=== PATIENT | female | born 1930 | race Caucasian/White ===

== ENCOUNTER 2017-10-11 16:46 | Emergency (ER) | payer MEDICARE, MEDICAID ==
[~2017-10-11] VITALS: Ht 157.5 cm; Wt 59.0 kg
--- NOTE | 2017-10-11 16:41 | Emergency Room Report ---
History of Present Illness General Chief Complaint: Skin Rash/Abscess Present Illness HPI Patient is a 86-year-old female with history dementia sent in by primary care physician from [facility] after increased of axillary swelling possible abscess. The patient prior history dementia. She had no previous history of abscess. Patient markedly limited by patient's mental status Allergies: Coded Allergies: NO KNOWN DRUG ALLERGIES (Unverified Allergy, Unknown, 12/19/15) STRAWBERRY (Verified Allergy, Unknown, 08/12/15) Uncoded Allergies: STRAWBERRY (Allergy, Unknown, 12/19/15) Patient History Past Medical History: see triage record Reviewed Nursing Documentation: PMH: Agreed, PSxH: Agreed Review of Systems All Other Systems: negative except mentioned in HPI Physical Exam Vital Signs Date Time Temp Pulse Resp B/P (MAP) Pulse Ox O2 Delivery O2 Flow Rate FiO2 10/11/17 16:38 67 20 122/56 95 Room Air Sp02 EP Interpretation: reviewed, normal General Appearance: normal inspection, well appearing, no apparent distress, alert, Chronically Ill Head: atraumatic ENT: normal ENT inspection, hearing grossly normal, normal voice Neck: normal inspection, full range of motion, supple, no bony tend Respiratory: normal inspection, lungs clear, normal breath sounds, no respiratory distress, no retraction, no wheezing Cardiovascular #1: regular rate, rhythm, no edema Gastrointestinal: normal inspection, normal bowel sounds, non tender, soft, no guarding, no hernia Genitourinary: no CVA tenderness Musculoskeletal: normal inspection, back normal, normal range of motion Neurologic: normal inspection, alert, responsive, speech normal Psychiatric: normal inspection, judgement/insight normal, mood/affect normal Skin: normal inspection, normal color, no rash Procedures Incision and Drainage Incision and Drainage : Consent: Written Site: left axilla Blade Size: 11 I & D Procedure: betadine prep, sterile drapes applied, sterile dressing applied Wound Location: axilla Wound Length (cm): 1 Irrigated w/ Saline (ccs): 30 Anesthesia: Lidocaine w/ Epi Volume Anesthetic (ccs): 5 Patient Tolerated: Well Complications: None Medical Decision Making Diagnostic Impression: Primary Impression: Abscess of axilla, left ER Course Patient presented for abscess. Differential diagnosis included was not limited to abscess, cellulitis, folliculitis, necrotizing fasciitis. Abscess was drained with slight amount of purulent material. I laboratory testing was unremarkable. The patient is advised to follow up with primary care doctor in 1-2 days. Patient is advised to return if any worsening condition or if any changes in status that are concerning. Labs Test 10/11/17 17:20 White Blood Count 8.3 K/UL (4.8-10.8) Red Blood Count 3.82 M/UL (4.20-5.40) Hemoglobin 11.9 G/DL (12.0-16.0) Hematocrit 38.3 % (37.0-47.0) Mean Corpuscular Volume 100 FL (80-99) Mean Corpuscular Hemoglobin 31.3 PG (27.0-31.0) Mean Corpuscular Hemoglobin Concent 31.2 G/DL (32.0-36.0) Red Cell Distribution Width 12.5 % (11.6-14.8) Platelet Count 221 K/UL (150-450) Mean Platelet Volume 7.7 FL (6.5-10.1) Neutrophils (%) (Auto) 68.2 % (45.0-75.0) Lymphocytes (%) (Auto) 19.2 % (20.0-45.0) Monocytes (%) (Auto) 9.7 % (1.0-10.0) Eosinophils (%) (Auto) 1.7 % (0.0-3.0) Basophils (%) (Auto) 1.2 % (0.0-2.0) Sodium Level 143 MMOL/L (136-145) Potassium Level 3.8 MMOL/L (3.5-5.1) Chloride Level 107 MMOL/L (98-107) Carbon Dioxide Level 25 MMOL/L (21-32) Anion Gap 11 mmol/L (5-15) Blood Urea Nitrogen 23 mg/dL (7-18) Creatinine 1.2 MG/DL (0.55-1.30) Estimat Glomerular Filtration Rate mL/min (>60) Glucose Level 85 MG/DL (74-106) Lactic Acid Level 1.40 mmol/L (0.66-2.22) Calcium Level 8.9 MG/DL (8.5-10.1) Total Bilirubin 0.3 MG/DL (0.2-1.0) Aspartate Amino Transf (AST/SGOT) 15 U/L (15-37) Alanine Aminotransferase (ALT/SGPT) 15 U/L (12-78) Alkaline Phosphatase 66 U/L (46-116) Total Creatine Kinase 85 U/L (26-308) Creatine Kinase MB 2.9 NG/ML (0.0-3.6) Creatine Kinase MB Relative Index 3.4 Troponin I 0.002 ng/mL (0.000-0.056) Total Protein 7.9 G/DL (6.4-8.2) Albumin 3.6 G/DL (3.4-5.0) Globulin 4.3 g/dL Albumin/Globulin Ratio 0.8 (1.0-2.7) Last Vital Signs Date Time Temp Pulse Resp B/P (MAP) Pulse Ox O2 Delivery O2 Flow Rate FiO2 10/11/17 16:38 67 20 122/56 95 Room Air Status: improved Disposition: HOME, SELF-CARE Condition: Stable Scripts Cephalexin* (KEFLEX*) 500 Mg Capsule 500 MG ORAL Q6H, #28 CAP 0 Refills Prov: Rj Ibrahim 10/11/17 Rj Ibrahim Oct 11, 2017 16:41
[~2017-10-11 16:46] MED LIST: ASPIRIN81 MG ORAL; ATIVAN1 MG ORAL; ATORVASTATIN CA10 MG ORAL; ATORVASTATIN CA20 MG ORAL; BACTROBAN 2% OI15 GM TOPIC; BISACODYL5 MG RECTAL; COLACE100 MG ORAL; CRANBERRY450 M4 PO; FISH OIL 500 M1 EAC1 PO; FLEET ENEMA133 ML RECTAL; FOLIC ACID1 MG ORAL; IMODIUM2 MG ORAL; LEVOTHYROXINE100 MCG ORAL; LEVOTHYROXINE125 MCG ORAL; METOPROLOL TART25 MG ORAL; MILK OF MA400 MG/51 ORAL; MULTIVITAMINS1 EA13 ORAL; NUEDEXTA 20-101 EAC1 PO; OYSTER SHELL 51 EAC1 PO; SPIRONOLACTONE25 MG ORAL; TYLENOL325 MG ORAL
[2017-10-11 17:00] VITALS: BP 162/68
[2017-10-11] MEDS ORDERED: Lidocaine 1% 10mg/ml/EPI 0.01mg/ml 50ml INJ ONE (17:31)
[2017-10-11 17:51] LABS: ANION GAP 11 mmol/L (5-15); CALCIUM 8.9 MG/DL (8.5-10.1); CARBON DIOXIDE 25 MMOL/L (21-32); CHLORIDE 107 MMOL/L (98-107); CREATININE 1.2 MG/DL (0.55-1.30); POTASSIUM 3.8 MMOL/L (3.5-5.1); SODIUM 143 MMOL/L (136-145)
[2017-10-11 17:55] LABS: BASOPHILS % (AUTO) 1.2 % (0.0-2.0); EOSINOPHILS % (AUTO) 1.7 % (0.0-3.0); LYMPHOCYTES % (AUTO) 19.2 % (20.0-45.0); MEAN CORPUSCULAR HEMOGLOBIN 31.3 PG (27.0-31.0); MEAN CORPUSCULAR HGB CONC 31.2 G/DL (32.0-36.0); MEAN CORPUSCULAR VOLUME 100 FL (80-99); MEAN PLATELET VOLUME 7.7 FL (6.5-10.1); MONOCYTES % (AUTO) 9.7 % (1.0-10.0); NEUTROPHILS % (AUTO) 68.2 % (45.0-75.0); PLATELET COUNT 221 K/UL (150-450); RED BLOOD COUNT 3.82 M/UL (4.20-5.40); RED CELL DISTRIBUTION WIDTH 12.5 % (11.6-14.8); WHITE BLOOD COUNT 8.3 K/UL (4.8-10.8)
[2017-10-11] MEDS ORDERED: Bacitracin Oint UD TOPIC ONE (18:00)
[2017-10-11] MEDS ORDERED: LORAZEPAM0.5 MG ORAL (18:02)
[2017-10-11 18:05] LABS: ALANINE AMINOTRANSFERASE 15 U/L (12-78); ALBUMIN/GLOBULIN RATIO 0.8 (1.0-2.7); ASPARTATE AMINO TRANSFERASE 15 U/L (15-37); CKMB 2.9 NG/ML (0.0-3.6); TOTAL PROTEIN 7.9 G/DL (6.4-8.2)
[2017-10-11] MEDS ORDERED: LEVOTHYROXINE125 MCG ORAL (18:05)
[2017-10-11] MEDS ORDERED: METOPROLOL TART25 MG ORAL (18:05)
[2017-10-11] MEDS ORDERED: ACETAMINOPHEN325 M1 ORAL (18:07)
[2017-10-11] MEDS ORDERED: SERTRALINE HCL50 MG ORAL (18:08)
[2017-10-11] MEDS ORDERED: Lidocaine 1% 10mg/ml/Epi 0.005mg/ml 30ml vial INJ ONE (18:15)
[2017-10-11] MEDS ORDERED: KEFLEX500 MG ORAL (18:17)
[2017-10-11] MEDS ORDERED: BACTRIM-DS1 EA ORAL (18:17)
[2017-10-11 18:30] VITALS: BP 162/62
--- NOTE | 2017-10-12 10:36 | Diagnostic Imaging Report ---
Indication: Shortness of breath Technique: XRAY CHEST 1 V Comparison: 12/19/15 Findings: Cardiac silhouette is prominent. There is central pulmonary vascular congestion and mild interstitial probable edema. Bilateral lung base atelectasis is noted. Degenerative changes of the spine are seen. Atherosclerotic changes are present. Impression: Cardiomegaly with central pulmonary vascular congestion and mild interstitial probable edema. Bibasilar atelectasis. Clinical correlation/followup recommended.
--- NOTE | 2017-10-13 15:34 | Cardiology Report ---
APPROVED REPORT EKG Measurement Heart [id number] Normal sinus rhythm Left axis deviation Left bundle branch block Abnormal ECG
== END 2017-10-11 18:30 | disposition home or self-care (01) ==
LOC: EDBD 16:46 → EMR 17:00
DX: L02.412 Cutaneous abscess of left axilla (principal)
CPT/HCPCS: 10060; 36415; 71010; 80053; 82550; 82553; 83605; 84484; 85025; 87040; 93005; 99282

== ENCOUNTER 2019-10-02 13:34 | Inpatient (IN) | payer MEDICARE, MEDICAID ==
[~2019-10-02] VITALS: Ht 170.2 cm; Wt 60.3 kg
[~2019-10-02 13:34] MED LIST changes: +ACETAMINOPHEN325 M1 ORAL; +BACTRIM-DS1 EA ORAL; +KEFLEX500 MG ORAL; +LORAZEPAM0.5 MG ORAL; +SERTRALINE HCL50 MG ORAL
[2019-10-02] MEDS ORDERED: cefTRIAXone 1 GM in NS 55 ML IVPB ONE (14:00)
--- NOTE | 2019-10-02 14:08 | Emergency Room Report ---
History of Present Illness General Chief Complaint: Abnormal Labs Source: Medical Record, EMS Present Illness HPI Disclaimer: Please note that this report is being documented using DRAGON technology. This can lead to erroneous entry secondary to incorrect interpretation by the dictating instrument. HPI: 88-year-old female presents for evaluation of failure to thrive and urinary tract infection from her nursing facility. Urinalysis performed on as an outpatient shows 3+ leukocyte esterase and turbid appearance consistent with acute urinary tract infection. Patient was reportedly less active than usual though her baseline mental status is AO x1. Transfer document patient also reports poor feeding over the past few days. Was sent in for medical evaluation and admission by her PMD. Patient cannot provide any history. She arrives with stable vital signs. PMH: Alzheimer's dementia, hypertension, hyperlipidemia, hypothyroidism, anemia PSH: Could not obtain from patient Allergies: No known medication drug allergies Social Hx: Could not obtain from patient Allergies: Coded Allergies: NO KNOWN DRUG ALLERGIES (Unverified Allergy, Unknown, 12/19/15) STRAWBERRY (Verified Allergy, Unknown, 08/12/15) Uncoded Allergies: STRAWBERRY (Allergy, Unknown, 12/19/15) Nursing Documentation-PMH Past Medical History: No History, Except For Hx Cardiac Problems: Yes - BRADYCARDIA Hx Hypertension: Yes Hx Diabetes: No - hypothyroidism Hx Cancer: Yes Hx Gastrointestinal Problems: Yes - PT HAS HISTORY OF ABDOMINAL PROBLEMS BUT UNKNOWN History Of Psychiatric Problem: Yes - HELLEN, MAJOR DEPRESSIVE DISORDER Hx Neurological Problems: Yes Hx Dementia: Yes Hx Alzheimer's Disease: Yes Hx Memory Loss: Yes Review of Systems All Other Systems: limited Physical Exam Vital Signs Date Time Temp Pulse Resp B/P (MAP) Pulse Ox O2 Delivery O2 Flow Rate FiO2 10/02/19 13:35 97.3 59 18 97/58 (71) 93 Room Air General: Awake and alert, no acute distress sleeping on my evaluation HEENT: NC/AT. EOMI. dry mucous membranes Cardiovascular: Bradycardia with a rate in the mid 50s. S1 and S2 normal. No murmur appreciated Resp: Normal work of breathing. No cough, wheezing or crackles appreciated Abdomen: Abdomen is soft, nondistended. Mild tenderness and apparent pain reaction to deep palpation of the suprapubic region MSK: Normal tone and bulk. Moving all extremities. No obvious deformity. Neuro: Sleeping, awakens to verbal stimulus. Cannot provide any significant history. Makes purposeful movements towards pain. GCS 10 Medical Decision Making Diagnostic Impression: Primary Impression: UTI (urinary tract infection) Additional Impression: AMS (altered mental status) ER Course 88-year-old female sent from nursing facility by her PMD for evaluation and admission of UTI, decreased mental status and poor feeding over the past few days. We will repeat labs including urinalysis though we will treat patient with ceftriaxone and provide a small dose of IV fluids. Her vital signs are stable and within normal limits aside from bradycardia seen on monitor. She is afebrile, normal respiratory rate, normal oxygenation. Laboratory Tests Test 10/02/19 14:00 White Blood Count 11.1 K/UL (4.8-10.8) H Red Blood Count 4.07 M/UL (4.20-5.40) L Hemoglobin 13.0 G/DL (12.0-16.0) Hematocrit 38.8 % (37.0-47.0) Mean Corpuscular Volume 95 FL (80-99) Mean Corpuscular Hemoglobin 31.9 PG (27.0-31.0) H Mean Corpuscular Hemoglobin Concent 33.5 G/DL (32.0-36.0) Red Cell Distribution Width 11.1 % (11.6-14.8) L Platelet Count 324 K/UL (150-450) Mean Platelet Volume 7.2 FL (6.5-10.1) Neutrophils (%) (Auto) 69.2 % (45.0-75.0) Lymphocytes (%) (Auto) 20.7 % (20.0-45.0) Monocytes (%) (Auto) 7.8 % (1.0-10.0) Eosinophils (%) (Auto) 1.4 % (0.0-3.0) Basophils (%) (Auto) 0.8 % (0.0-2.0) Urine Color Pale yellow Urine Appearance Slightly cloudy Urine pH 8 (4.5-8.0) Urine Specific Star 1.010 (1.005-1.035) Urine Protein 3+ (NEGATIVE) H Urine Glucose (UA) Negative (NEGATIVE) Urine Ketones Negative (NEGATIVE) Urine Blood 3+ (NEGATIVE) H Urine Nitrite Negative (NEGATIVE) Urine Bilirubin Negative (NEGATIVE) Urine Urobilinogen Normal MG/DL (0.0-1.0) Urine Leukocyte Esterase 3+ (NEGATIVE) H Urine RBC Pending Urine WBC Pending Urine Squamous Epithelial Cells Pending Urine Bacteria Pending Sodium Level 140 MMOL/L (136-145) Potassium Level 3.6 MMOL/L (3.5-5.1) Chloride Level 104 MMOL/L (98-107) Carbon Dioxide Level 23 MMOL/L (21-32) Anion Gap 13 mmol/L (5-15) Blood Urea Nitrogen 40 mg/dL (7-18) H Creatinine 1.3 MG/DL (0.55-1.30) Estimate Glomerular Filtration Rate mL/min (>60) Glucose Level 140 MG/DL (74-106) H Calcium Level 8.4 MG/DL (8.5-10.1) L Total Bilirubin 0.2 MG/DL (0.2-1.0) Aspartate Amino Transferase (AST) 9 U/L (15-37) L Alanine Aminotransferase (ALT) 15 U/L (12-78) Alkaline Phosphatase 70 U/L (46-116) Total Protein 7.5 G/DL (6.4-8.2) Albumin 3.0 G/DL (3.4-5.0) L Globulin 4.5 g/dL Albumin/Globulin Ratio 0.7 (1.0-2.7) L Reevaluation Time: 14:58 Last Vital Signs Date Time Temp Pulse Resp B/P (MAP) Pulse Ox O2 Delivery O2 Flow Rate FiO2 10/02/19 13:35 97.3 59 18 97/58 (71) 93 Room Air Reevaluation Impression Urinalysis is consistent with urinary tract infection. I spoke with her primary care doctor who confirms that the patient had a positive blood culture for E. coli but cannot recall sensitivities. She will be admitted and infectious disease will evaluate the patient and further continue appropriate antibiotics. Ceftriaxone was given here in the emergency department. Labs are otherwise within normal limits aside from elevated BUN consistent with poor oral intake over the past few days. Kidney function and white count are within normal limits. She is stable for admission to the medical floor for symptomatic urinary tract infection. Disposition: ADMITTED INPATIENT Condition: Serious Youusf Naranjo MD Oct 02, 2019 14:08
[2019-10-02 14:21] VITALS: BP 116/52
[2019-10-02] MEDS ORDERED: LEVOTHYROXINE175 MCG ORAL (14:24)
[2019-10-02 14:43] LABS: APPEARANCE,URINE SLIGHTLY CLOUDY; BILIRUBIN, URINE NEGATIVE (NEGATIVE); COLOR,URINE PALE YELLOW; GLUCOSE, URINE (UA) NEGATIVE (NEGATIVE); KETONES,URINE NEGATIVE (NEGATIVE); LEUKOCYTE ESTERASE ,URINE 3+ (NEGATIVE); NITRITE,URINE NEGATIVE (NEGATIVE); PH,URINE 8 (4.5-8.0); PROTEIN,URINE 3+ (NEGATIVE); UROBILINOGEN,URINE NORMAL MG/DL (0.0-1.0)
[2019-10-02 14:44] LABS: ANION GAP 13 mmol/L (5-15); BLOOD UREA NITROGEN 40 mg/dL (7-18); CALCIUM 8.4 MG/DL (8.5-10.1); CARBON DIOXIDE 23 MMOL/L (21-32); CHLORIDE 104 MMOL/L (98-107); CREATININE 1.3 MG/DL (0.55-1.30); POTASSIUM 3.6 MMOL/L (3.5-5.1); SODIUM 140 MMOL/L (136-145)
[2019-10-02 14:46] LABS: BASOPHILS % (AUTO) 0.8 % (0.0-2.0); EOSINOPHILS % (AUTO) 1.4 % (0.0-3.0); HEMATOCRIT 38.8 % (37.0-47.0); LYMPHOCYTES % (AUTO) 20.7 % (20.0-45.0); MEAN CORPUSCULAR VOLUME 95 FL (80-99); MONOCYTES % (AUTO) 7.8 % (1.0-10.0); NEUTROPHILS % (AUTO) 69.2 % (45.0-75.0); PLATELET COUNT 324 K/UL (150-450); RED BLOOD COUNT 4.07 M/UL (4.20-5.40); RED CELL DISTRIBUTION WIDTH 11.1 % (11.6-14.8); WHITE BLOOD COUNT 11.1 K/UL (4.8-10.8)
[2019-10-02 14:49] LABS: ALANINE AMINOTRANSFERASE 15 U/L (12-78); ALBUMIN/GLOBULIN RATIO 0.7 (1.0-2.7); ALKALINE PHOSPHATASE 70 U/L (46-116); ASPARTATE AMINO TRANSFERASE 9 U/L (15-37); BILIRUBIN,TOTAL 0.2 MG/DL (0.2-1.0)
[2019-10-02 15:25] VITALS: BP 126/52
[2019-10-02 16:30] VITALS: BP 122/81
[2019-10-02 20:00] VITALS: BP 155/63
[2019-10-02 21:25] VITALS: BP 124/66
[2019-10-02] MEDS: Heparin 5000 units/ml inj SUBQ SCH (21:40)
--- NOTE | 2019-10-02 23:31 | History and Physical Report ---
DATE OF ADMISSION: 10/02/2019 HISTORY OF PRESENT ILLNESS: The patient is a poor historian, cannot get a reliable history from the patient. The patient admitted for symptomatic urinary tract infection. According to the facility nurses, the patient has been more lethargic, less responsive, and poor appetite. Culture was ordered and it was positive. The patient denies nausea, vomiting, diarrhea, however, is a poor historian, cannot rely upon her history. PAST MEDICAL HISTORY: Organic brain syndrome, hyperlipidemia, constipation, hypothyroidism, hypertension, depression. ALLERGIES: Strawberries. MEDICATIONS: Bisacodyl, Lipitor, aspirin, metoprolol, sertraline, spironolactone. FAMILY HISTORY: Unable to obtain. SOCIAL HISTORY: Unable to obtain. REVIEW OF SYSTEMS: Very poor historian however. HEENT: Denies headaches. RESPIRATORY: Denies shortness of breath. Denies cough. CARDIOVASCULAR: Denies chest pain. Denies nausea, vomiting, or diarrhea. Again is a poor historian. PHYSICAL EXAMINATION: VITAL SIGNS: Temperature 97.3, pulse 59, blood pressure 116/50. HEENT: PERRLA. NECK: Supple. No lymphadenopathy. CHEST: Clear to auscultation. CARDIOVASCULAR: Regular rate and rhythm. No murmurs or extra sounds. GASTROINTESTINAL: Soft. Positive bowel sounds. No organomegaly. EXTREMITIES: No edema. Contractures. Reflexes in both sides. . LABORATORY DATA: WBC of 11.9, hemoglobin 13, and platelets of 324. Sodium 140, potassium 3.6, BUN of 14, creatinine 1.3, and glucose of . ASSESSMENT AND PLAN: 1. Rule out dehydration. 2. Failure to thrive. 3. More lethargic than baseline . 4. Symptomatic urinary tract infection. I have asked Dr. Cleveland, Dr. Alok Sanchez to see the patient for the management of the above-mentioned diagnoses and treatment. Yessica Davenport M.D. DR: Briana JOB#: [id number] CC:
[2019-10-03] VITALS (8 sets, daily range): BP systolic 111–142; BP diastolic 63–99
[2019-10-03] MEDS: Levothyroxine 125mcg tab ORAL SCH (06:16)
[2019-10-03 08:05] LABS: BASOPHILS % (AUTO) 0.6 % (0.0-2.0); EOSINOPHILS % (AUTO) 1.3 % (0.0-3.0); HEMATOCRIT 35.8 % (37.0-47.0); HEMOGLOBIN 12.1 G/DL (12.0-16.0); LYMPHOCYTES % (AUTO) 21.9 % (20.0-45.0); MEAN CORPUSCULAR VOLUME 94 FL (80-99); MONOCYTES % (AUTO) 6.3 % (1.0-10.0); NEUTROPHILS % (AUTO) 69.9 % (45.0-75.0); PLATELET COUNT 284 K/UL (150-450); RED BLOOD COUNT 3.79 M/UL (4.20-5.40); WHITE BLOOD COUNT 10.9 K/UL (4.8-10.8)
[2019-10-03 08:12] LABS: ALANINE AMINOTRANSFERASE 14 U/L (12-78); ALBUMIN 2.8 G/DL (3.4-5.0); ALBUMIN/GLOBULIN RATIO 0.7 (1.0-2.7); ALKALINE PHOSPHATASE 61 U/L (46-116); ANION GAP 11 mmol/L (5-15); ASPARTATE AMINO TRANSFERASE 14 U/L (15-37); BILIRUBIN,TOTAL 0.3 MG/DL (0.2-1.0); BLOOD UREA NITROGEN 29 mg/dL (7-18); CALCIUM 8.1 MG/DL (8.5-10.1); CARBON DIOXIDE 23 MMOL/L (21-32); CHLORIDE 110 MMOL/L (98-107); POTASSIUM 3.5 MMOL/L (3.5-5.1); SODIUM 144 MMOL/L (136-145)
[2019-10-03] MEDS: Milk of Magnesia 30ml Ud ORAL SCH (09:00)
[2019-10-03] MEDS: Spironolactone 25mg tab ORAL SCH (09:17)
[2019-10-03] MEDS: Aspirin Baby 81mg ORAL SCH (09:18)
[2019-10-03] MEDS: Sertraline 50mg tab ORAL SCH (09:18)
[2019-10-03] MEDS: Heparin 5000 units/ml inj SUBQ SCH ×2 (09:28→20:52)
[2019-10-03] MEDS: cefTRIAXone 1 GM in D5W 55 ML IVPB SCH (10:34)
[2019-10-03] MEDS ORDERED: Calcium Carbonate 500mg w/Vit D 200iu tab ORAL SCH ×2 (12:00→15:00)
[2019-10-03] MEDS: Calcium Carbonate 500mg w/Vit D 200iu tab ORAL SCH (16:06)
--- NOTE | 2019-10-03 20:49 | General Progress Note ---
Assessment/Plan Problem List: (1) HTN (hypertension) ICD Codes: I10 - Essential (primary) hypertension SNOMED: 03248616 (2) UTI (urinary tract infection) ICD Codes: N39.0 - Urinary tract infection, site not specified SNOMED: 22969766 (3) Dehydration ICD Codes: E86.0 - Dehydration SNOMED: 43468025 (4) AMS (altered mental status) ICD Codes: R41.82 - Altered mental status, unspecified SNOMED: 604925472 Status: progressing Assessment/Plan: afebrile uti improving ams obs abx per id Subjective ROS Limited/Unobtainable: Yes Allergies: Coded Allergies: NO KNOWN DRUG ALLERGIES (Unverified Allergy, Unknown, 12/19/15) STRAWBERRY (Verified Allergy, Unknown, 08/12/15) Uncoded Allergies: STRAWBERRY (Allergy, Unknown, 12/19/15) Objective Last 24 Hour Vital Signs Date Time Temp Pulse Resp B/P (MAP) Pulse Ox O2 Delivery O2 Flow Rate FiO2 10/03/19 20:30 Room Air 10/03/19 20:18 97.2 95 20 116/79 (91) 95 10/03/19 16:00 97.7 65 17 142/63 (89) 95 10/03/19 12:00 97.6 61 16 140/97 (111) 96 10/03/19 09:18 96 111/67 10/03/19 09:15 64 137/74 (95) 10/03/19 09:00 Room Air 10/03/19 08:00 97.9 96 16 111/67 (82) 96 10/03/19 04:00 97.9 61 20 128/63 (84) 95 10/03/19 00:00 97.6 59 21 117/73 (88) 96 10/02/19 21:25 64 124/66 (85) 10/02/19 21:22 64 124/66 10/02/19 21:00 Room Air Intake and Output 10/02/19 10/03/19 19:00 07:00 # Voids 2 1 # Bowel Movements 3 2 Laboratory Tests 10/03/19 06:20: White Blood Count 10.9H, Red Blood Count 3.79L, Hemoglobin 12.1, Hematocrit 35.8L, Mean Corpuscular Volume 94, Mean Corpuscular Hemoglobin 31.8H, Mean Corpuscular Hemoglobin Concent 33.7, Red Cell Distribution Width 11.0L, Platelet Count 284, Mean Platelet Volume 7.2, Neutrophils (%) (Auto) 69.9, Lymphocytes (%) (Auto) 21.9, Monocytes (%) (Auto) 6.3, Eosinophils (%) (Auto) 1.3, Basophils (%) (Auto) 0.6, Sodium Level 144, Potassium Level 3.5, Chloride Level 110H, Carbon Dioxide Level 23, Anion Gap 11, Blood Urea Nitrogen 29H, Creatinine 1.0, Estimat Glomerular Filtration Rate , Glucose Level 91, Calcium Level 8.1L, Total Bilirubin 0.3, Aspartate Amino Transf (AST/SGOT) 14L, Alanine Aminotransferase (ALT/SGPT) 14, Alkaline Phosphatase 61, Total Protein 6.9, Albumin 2.8L, Globulin 4.1, Albumin/Globulin Ratio 0.7L Height (Feet): 5 Height (Inches): 7.00 Weight (Pounds): 133 General Appearance: confused Cardiovascular: normal rate Respiratory/Chest: lungs clear Yessica Davenport MD Oct 03, 2019 20:49
[2019-10-04 04:00] VITALS: BP 118/98
[2019-10-04] MEDS: Levothyroxine 125mcg tab ORAL SCH (05:30)
[2019-10-04] MEDS: Milk of Magnesia 30ml Ud ORAL SCH (09:16)
[2019-10-04] MEDS: Spironolactone 25mg tab ORAL SCH (09:16)
[2019-10-04] MEDS: Sertraline 50mg tab ORAL SCH (09:16)
[2019-10-04] MEDS: Aspirin Baby 81mg ORAL SCH (09:16)
[2019-10-04] MEDS: Heparin 5000 units/ml inj SUBQ SCH ×3 (09:23→21:03)
[2019-10-04] MEDS: cefTRIAXone 1 GM in D5W 55 ML IVPB SCH (09:45)
[2019-10-04 11:56] VITALS: BP 120/70
[2019-10-04 16:00] VITALS: BP 145/71
[2019-10-04] MEDS: Calcium Carbonate 500mg w/Vit D 200iu tab ORAL SCH (17:09)
[2019-10-04 20:00] VITALS: BP 135/65
--- NOTE | 2019-10-04 21:43 | General Progress Note ---
Assessment/Plan Problem List: (1) HTN (hypertension) ICD Codes: I10 - Essential (primary) hypertension SNOMED: 74321426 (2) UTI (urinary tract infection) ICD Codes: N39.0 - Urinary tract infection, site not specified SNOMED: 47109600 (3) Dehydration ICD Codes: E86.0 - Dehydration SNOMED: 23795068 (4) AMS (altered mental status) ICD Codes: R41.82 - Altered mental status, unspecified SNOMED: 914720736 Status: progressing Assessment/Plan: uti poor historian no fever vital holding nac abx per id Subjective ROS Limited/Unobtainable: Yes Allergies: Coded Allergies: NO KNOWN DRUG ALLERGIES (Unverified Allergy, Unknown, 12/19/15) STRAWBERRY (Verified Allergy, Unknown, 08/12/15) Uncoded Allergies: STRAWBERRY (Allergy, Unknown, 12/19/15) Objective Last 24 Hour Vital Signs Date Time Temp Pulse Resp B/P (MAP) Pulse Ox O2 Delivery O2 Flow Rate FiO2 10/04/19 21:00 76 135/65 10/04/19 16:00 97.1 81 18 145/71 (95) 96 10/04/19 11:56 97.3 65 18 120/70 (87) 98 10/04/19 09:00 Room Air 10/04/19 09:00 58 136/54 10/04/19 04:00 97.2 69 20 118/98 (105) 96 10/03/19 23:41 97.3 66 20 122/99 (107) 95 Intake and Output 10/03/19 10/04/19 19:00 07:00 Intake Total 600 ml 600 ml Balance 600 ml 600 ml Intake Oral 600 ml 600 ml # Voids 3 2 Height (Feet): 5 Height (Inches): 7.00 Weight (Pounds): 133 General Appearance: confused Yessica Davenport MD Oct 04, 2019 21:43
[2019-10-05] VITALS: BP 124/57
[2019-10-05 04:00] VITALS: BP 134/79
[2019-10-05] MEDS: Levothyroxine 125mcg tab ORAL SCH (06:20)
[2019-10-05 08:00] VITALS: BP 136/79
[2019-10-05] MEDS: Aspirin Baby 81mg ORAL SCH (08:55)
[2019-10-05] MEDS: Sertraline 50mg tab ORAL SCH (08:56)
[2019-10-05] MEDS: Spironolactone 25mg tab ORAL SCH (08:56)
[2019-10-05] MEDS: Heparin 5000 units/ml inj SUBQ SCH ×3 (08:57→21:15)
[2019-10-05] MEDS: cefTRIAXone 1 GM in D5W 55 ML IVPB SCH (09:03)
[2019-10-05] MEDS: Milk of Magnesia 30ml Ud ORAL SCH (09:05)
[2019-10-05 11:58] VITALS: BP 125/69
[2019-10-05] MEDS: Calcium Carbonate 500mg w/Vit D 200iu tab ORAL SCH (16:00)
[2019-10-05 16:38] VITALS: BP 127/73
[2019-10-05 20:00] VITALS: BP 122/99
--- NOTE | 2019-10-05 21:00 | General Progress Note ---
Assessment/Plan Problem List: (1) HTN (hypertension) ICD Codes: I10 - Essential (primary) hypertension SNOMED: 10815370 (2) UTI (urinary tract infection) ICD Codes: N39.0 - Urinary tract infection, site not specified SNOMED: 19954992 (3) Dehydration ICD Codes: E86.0 - Dehydration SNOMED: 57663763 (4) AMS (altered mental status) ICD Codes: R41.82 - Altered mental status, unspecified SNOMED: 819155696 Status: progressing Assessment/Plan: uti is improving afebrile dc in am Subjective ROS Limited/Unobtainable: Yes - \=[ Gastrointestinal/Abdominal: Reports: abdomen distended Allergies: Coded Allergies: NO KNOWN DRUG ALLERGIES (Unverified Allergy, Unknown, 12/19/15) STRAWBERRY (Verified Allergy, Unknown, 08/12/15) Uncoded Allergies: STRAWBERRY (Allergy, Unknown, 12/19/15) Objective Last 24 Hour Vital Signs Date Time Temp Pulse Resp B/P (MAP) Pulse Ox O2 Delivery O2 Flow Rate FiO2 10/05/19 20:00 97.3 76 18 122/99 (107) 94 10/05/19 16:38 98.0 78 18 127/73 (91) 95 10/05/19 11:58 97.8 75 18 125/69 (87) 95 10/05/19 09:00 Room Air 10/05/19 08:56 68 136/79 10/05/19 08:00 97.5 68 20 136/79 (98) 98 10/05/19 04:00 96.8 68 20 134/79 (97) 98 10/05/19 00:00 97.4 64 19 124/57 (79) 98 10/04/19 21:00 76 135/65 10/04/19 21:00 Room Air Intake and Output 10/04/19 10/05/19 19:00 07:00 Intake Total 535 ml 480 ml Balance 535 ml 480 ml Intake Oral 480 ml 480 ml IV Total 55 ml # Voids 3 2 # Bowel Movements 1 2 Height (Feet): 5 Height (Inches): 7.00 Weight (Pounds): 133 General Appearance: confused Cardiovascular: normal rate Respiratory/Chest: lungs clear Abdomen: soft Yessica Davenport MD Oct 05, 2019 21:00
[2019-10-06] VITALS: BP 110/53
[2019-10-06 04:00] VITALS: BP 103/62
[2019-10-06] MEDS: Levothyroxine 125mcg tab ORAL SCH (05:37)
[2019-10-06 08:00] VITALS: BP 142/65
[2019-10-06 08:02] VITALS: BP 142/65
[2019-10-06] MEDS: Aspirin Baby 81mg ORAL SCH (09:00)
[2019-10-06] MEDS: Sertraline 50mg tab ORAL SCH (09:00)
[2019-10-06] MEDS: Spironolactone 25mg tab ORAL SCH (09:00)
[2019-10-06] MEDS: Heparin 5000 units/ml inj SUBQ SCH (09:00)
[2019-10-06] MEDS: Milk of Magnesia 30ml Ud ORAL SCH (09:00)
[2019-10-06] MEDS: cefTRIAXone 1 GM in D5W 55 ML IVPB SCH (09:45)
[2019-10-06 12:00] VITALS: BP 120/72
[2019-10-06] MEDS ORDERED: CEPHALEXIN500 MG ORAL (12:58)
[2019-10-06] MEDS ORDERED: Cephalexin 500mg cap ORAL SCH (14:00)
[2019-10-06] MEDS: Calcium Carbonate 500mg w/Vit D 200iu tab ORAL SCH (15:58)
[2019-10-06 16:00] VITALS: BP 110/74
--- NOTE | 2019-10-06 16:00 | Consultation ---
DATE OF CONSULTATION: 10/06/2019 INFECTIOUS DISEASE CONSULTATION CONSULTING PHYSICIAN: Alok Sanchez M.D. PRIMARY ATTENDING PHYSICIAN: Yessica Davenport M.D. REASON FOR CONSULT: UTI. HISTORY OF PRESENT ILLNESS: This is an 88-year-old white female admitted on 02 of October from nursing facility with altered mental status, became less active, decrease in appetite. She was found to have abnormal labs including UA that showed pyuria. Urine culture grew Proteus mirabilis. The patient has no IV access. 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 ALLERGIES: Strawberries. No medication allergy. MEDICATIONS: Calcium plus vitamin D, ceftriaxone, aspirin, magnesium hydroxide, Zoloft, Aldactone, levothyroxine, heparin, atorvastatin, metoprolol, and Tylenol. SOCIAL HISTORY: She is . long-term resident. REVIEW OF SYSTEMS: The patient is confused, but denies any nausea, vomiting, or dysuria. Has no coughing. Looks happy. PHYSICAL EXAMINATION: VITAL SIGNS: Temperature 97.1, pulse 61, and blood pressure 142/65. GENERAL APPEARANCE: No acute distress. HEAD AND NECK: [place] conjunctivae. HEART: Normal rate. LUNGS: Clear. ABDOMEN: Soft, nontender, flat. EXTREMITIES: no edema. NEUROLOGIC: Awake and alert. She is disoriented. LABORATORY DATA: UA showed Proteus mirabilis. Sodium 144, potassium 3.5, chloride 110, bicarb 23, BUN 29, creatinine 1, glucose 91. WBC 10.9 at the time of admission was 11.1, hemoglobin 12.9, hematocrit 35.8, and platelets 284,000. UA showed wbc's of 60 to 80, rbc's of 5 to 10, leukocyte esterase 3+, bacteria many, nitrite negative. IMPRESSION: Urinary tract infection with Proteus mirabilis. The patient has dementia hypertension, hyperlipidemia, and hypothyroidism. RECOMMENDATION: Patient can be discharged to the nursing facility with p.o. Keflex 500 mg every 8 hours for four days. At the end of my exam, I thank Dr. Davenport for involving me in the care of this patient. Alok Sanchez M.D. DR: BALDEV JOB#: [id number] CC: ROSALIA
--- NOTE | 2019-10-07 07:14 | Discharge Summary ---
Discharge Summary Discharge Summary _ DATE OF ADMISSION: 10/02/2019 DATE OF DISCHARGE: 10/06/2019 DISCHARGED BY: Dr. Davenport REASON FOR ADMISSION: 88 years old female with past medical history of hypertension, hypothyroidism, hyperlipidemia, organic brain syndrome, depression, presented from the halfway facility for evaluation. Nursing staff reported patient being more lethargic, less responsive, with poor appetite. Urinalysis performed as outpatient on 09/29 showed +3 leukocyte esterase and other findings consistent with acute urinary tract infection. Patient was sent for further evaluation. Laboratory work-up at ER revealed mild leukocytosis, stable hemoglobin and hematocrit. Urinalysis revealed +3 leukocyte esterase , pyuria and many bacteria . BUN 40, creatinine 1.3. Patient subsequently was admitted for further management. CONSULTANTS: ID specialist Dr. Alvarenga [facility] COURSE: Patient admitted to medical surgical floor. Patient started on IV fluids and empiric antibiotic. ID specialist followed. Urine culture revealed Proteus mirabilis. Antibiotic regimen was continued. ID specialist recommended to change IV antibiotics to oral to complete the course at the facility. Leukocytosis resolved, no fevers. SNF medication resumed. Renal parameters and electrolytes were closely monitored. BUN from 40 down to 29 , creatinine from 1.3 down to 1.0. Blood pressure was managed with beta-amita and remained stable. Antiplatelet therapy with aspirin and statin continued. DVT prophylaxis provided. Supportive care provided. Patient clinically stabilized and was ready for discharge to halfway facility for continuation of care. FINAL DIAGNOSES: Proteus UTI Dehydration Altered mental status Hypertension Dementia HTN Hypothyroidism DISCHARGE MEDICATIONS: See Medication Reconciliation list. DISCHARGE INSTRUCTIONS: Patient was discharged to the halfway facility. Follow up with medical doctor at the facility. I have been assigned to dictate discharge summary for this account. I was not involved in the patient's management. Noa Arango NP Oct 07, 2019 07:14
--- NOTE | 2019-10-07 14:21 | CDS Physician Query ---
Clarification is required for compliance, coding accuracy, and to reflect severity of illness for this patient Dear Dr. Yessica Davenport MD Date: 10/07/2019 Automobile Engine Assembler/CDS Name: Vince Urias The patient is a poor historian, cannot get a reliable history from the patient. The patient admitted for symptomatic urinary tract infection. According to the facility nurses, the patient has been more lethargic, less responsive, and poor appetite. Culture was ordered and it was positive. The patient denies nausea, vomiting, diarrhea, however, is a poor historian, cannot rely upon her history. "Altered Mental Status" documented in Progress notes Please indicate the nature and chronicity of the condition below: [] Metabolic Encephalopathy [] Toxic Encephalopathy [] Toxic - Metabolic Encephalopathy [] Encephalopathy, Other [] Dementia with Delirium [] Hypoxic encephalopathy [] Posterior reversible encephalopathy syndrome [] Other: [] Not Applicable Present on Admission: [] Yes [] No [] Clinically Undetermined Physician signature Date Please also document in your Progress Notes and/or Discharge Summary and indicate if the condition was present on admission. MTDD
--- NOTE | 2019-10-13 07:11 | CDS Physician Query ---
Clarification is required for compliance, coding accuracy, and to reflect severity of illness for this patient Dear Dr. Alok Sanchez MD Date: 10/07/2019 Printer Operator/CDS Name: Vince Urias The patient is a poor historian, cannot get a reliable history from the patient. The patient admitted for symptomatic urinary tract infection. According to the facility nurses, the patient has been more lethargic, less responsive, and poor appetite. Culture was ordered and it was positive. The patient denies nausea, vomiting, diarrhea, however, is a poor historian, cannot rely upon her history. "Altered Mental Status" documented in Progress notes Please indicate the nature and chronicity of the condition below: [] Metabolic Encephalopathy [] Toxic Encephalopathy [] Toxic - Metabolic Encephalopathy [] Encephalopathy, Other [] Dementia with Delirium [] Hypoxic encephalopathy [] Posterior reversible encephalopathy syndrome [] Other: [] Not Applicable Present on Admission: [] Yes [] No [] Clinically Undetermined Physician signature Date Please also document in your Progress Notes and/or Discharge Summary and indicate if the condition was present on admission. MTDD
== END 2019-10-06 18:25 | DRG 689 ==
LOC: EDBD 13:34 → EMR 13:55 → 4E 14:28 → EDBEDREQ 15:18 → 4E 10-03 12:43
DX: N39.0 Urinary tract infection, site not specified (principal); G92 Toxic encephalopathy; R62.7 Adult failure to thrive; B96.4 Proteus (mirabilis) (morganii) as the cause of diseases classified elsewhere; E86.0 Dehydration; F03.90 Unspecified dementia, unspecified severity, without behavioral disturbance, psychotic disturbance, mood disturbance, and anxiety; I10 Essential (primary) hypertension; E03.9 Hypothyroidism, unspecified
CPT/HCPCS: 36415; 80053; 81003; 85025; 87081; 87086; 87181; 96361; 96365; 99285